=== PATIENT | male | born 2005 | race Caucasian/White ===

== ENCOUNTER 2024-10-19 16:07 | Emergency (ER) | payer OTHER, SELFPAY ==
[2024-10-19 16:10] VITALS: BP 150/90
--- NOTE | 2024-10-19 16:47 | ED.GENMED ---
History of Present Illness
<Erica Lama, BLOW [employer] WORKER - Last Filed: 10/22/24 17:18>
General
Chief Complaint: Throat Problem
Source: patient and family
Exam Limitations: none
Time Seen by Provider: 10/19/24 16:30
Nursing documentation reviewed up to this point in time: agreed with
History of Present Illness
History of Present Illness:
18 yo male started with sore throat 3 days ago, mild fatigue and today throat became more sore and swollen on right side. Saw PCP who sent pt here for possible abscess. Pt denies fever/chills, denies n/v/d. Is speaking with mild hot potato voice, is
swallowing well.
Past History
<Erica Lama, BL[employer] OFF WORKER - Last Filed: 10/22/24 17:18>
Past History
ED Past Medical History: Other (ADHD, ODD)
ED Past Surgical History: None
Social History
Tobacco: Smoker (Occasionally)
Alcohol: Occasional
Personal: Single
Living: with family
Employment: Employed
Review of Systems
<Erica Lama, BL[employer] OFF WORKER - Last Filed: 10/22/24 17:18>
Review of Systems
Allergies reviewed?: Yes
All Other Systems: ROS reviewed and negative except as documented in HPI and ROS
Constitutional: Reports fatigue; Denies fever or chills
EENT: Reports sore throat
Respiratory: Reports no symptoms
Cardiac: Reports no symptoms
ABD/GI: Reports no symptoms
Musculoskeletal: Reports no symptoms
Skin: Reports no symptoms
Neurological: Reports no symptoms
Phy Exam
<Erica Lama, BLOW OFF WORKER - Last Filed: 10/22/24 17:18>
Physical Exam
Physical Exam:
GENERAL: No acute distress. A&Ox3.
CONSTITUTIONAL: Afebrile.
EYES: clear, conjunctivae normal
ENMT: moist mucus membranes, Pharynx: Moderate swelling and erythema right peritonsillar area. Swallowing well, mild hot potato voice. No trismus, neck supple, no lymphadenopathy
RESPIRATORY: Regular respirations, nonlabored, lungs clear.
CARDIOVASCULAR: Regular rate and rhythm, no murmurs, no rubs.
GI: Soft, nontender, normal BS
MUSCULOSKELETAL: Moves with ease. Well perfused.
SKIN: Warm, dry, pink
PSYCH: Normal mood and affect. Well kept, interactive and appropriate
NEUROLOGIC: Awake, alert and oriented. No focal neurological deficits
Course
<Erica Lama, BLOW OFF WORKER - Last Filed: 10/22/24 17:18>
Orders/Labs/Results
Orders:
Orders
10/19/24 16:49
CT Neck With Iv Contrast Urgent
Reason For Exam: evaluate poss abscess
0.9% Sodium Chloride 500 ml [Nss] 500 ml IV BOLUS
10/19/24 17:06
Monotest Urgent
Rapid Strep Group A Urgent
[place] Source: Throat/Pharynx
Specimen Description:
Date Specimen was Collected: 10/19/24
Time Specimen was Collected: 16:59
Throat Culture [Throat Culture, Comprehensive] Urgent
[place] Source: Throat/Pharynx
Specimen Description:
Date Specimen was Collected: 10/19/24
Time Specimen was Collected: 16:59
10/19/24 20:06
Dexamethasone Sod Phosphate [Decadron] 10 mg IV NOW STA
10/19/24 20:21
Ketorolac [Toradol] 15 mg IV NOW STA
10/19/24 20:25
Clindamycin 600 mg/50 ml [Cleocin] 600 mg in 50 ml IV NOW
Vital Signs
Initial and Last Documented VS:
Initial Vital Signs
Temp Pulse Resp BP Pulse Ox
98.6 F 110 16 150/90 98
10/19/24 16:10 10/19/24 16:10 10/19/24 16:10 10/19/24 16:10 10/19/24 16:10
Last Documented Vital Signs
Temp Pulse Resp BP Pulse Ox
98.6 F 65 18 131/72 98
10/19/24 16:10 10/19/24 21:36 10/19/24 21:36 10/19/24 21:36 10/19/24 21:36
<Karen Chester MD - Last Filed: 10/19/24 21:45>
Orders/Labs/Results
Orders:
Orders
10/19/24 16:49
CT Neck With Iv Contrast Urgent
Reason For Exam: evaluate poss abscess
0.9% Sodium Chloride 500 ml [Nss] 500 ml IV BOLUS
10/19/24 17:06
Monotest Urgent
Rapid Strep Group A Urgent
[place] Source: Throat/Pharynx
Specimen Description:
Date Specimen was Collected: 10/19/24
Time Specimen was Collected: 16:59
Throat Culture [Throat Culture, Comprehensive] Urgent
[place] Source: Throat/Pharynx
Specimen Description:
Date Specimen was Collected: 10/19/24
Time Specimen was Collected: 16:59
10/19/24 20:06
Dexamethasone Sod Phosphate [Decadron] 10 mg IV NOW STA
10/19/24 20:21
Ketorolac [Toradol] 15 mg IV NOW STA
10/19/24 20:25
Clindamycin 600 mg/50 ml [Cleocin] 600 mg in 50 ml IV NOW
Vital Signs
Initial and Last Documented VS:
Initial Vital Signs
Temp Pulse Resp BP Pulse Ox
98.6 F 110 16 150/90 98
10/19/24 16:10 10/19/24 16:10 10/19/24 16:10 10/19/24 16:10 10/19/24 16:10
Last Documented Vital Signs
Temp Pulse Resp BP Pulse Ox
98.6 F 65 18 131/72 98
10/19/24 16:10 10/19/24 21:36 10/19/24 21:36 10/19/24 21:36 10/19/24 21:36
<Erica Lama BLOW OFF WORKER - Last Filed: 10/22/24 17:18>
MDM/Problems Addressed
Differential Diagnosis Includes:
peritonsillar abscess, retropharyngeal abscess, strep, [place]
MDM/Problems Addressed:
18 yo male started with sore throat 3 days ago, mild fatigue and today throat became more sore and swollen on right side. Saw PCP who sent pt here for possible abscess. Pt denies fever/chills, denies n/v/d. Is speaking with mild hot potato voice, is
swallowing well.
Afebrile, NAD
17:30
Covid neg
Rapid Flu neg
CT neck with IV contrast radiology report read: IMPRESSION:
1. ACUTE BILATERAL TONSILLITIS (right greater than left) involving the palatine tonsils in both sides of the oropharynx.
2. 1.8 cm RIGHT PERITONSILLAR ABSCESS (or phlegmon).
10/22/24 Called and spoke with mom, pt doing much better, starting to improve after ED visit. Eating and drinking, will f/u w his PCP
<Erica Lama BLOW OFF WORKER - Last Filed: 10/22/24 17:18>
*Critical Care Note
Total Time (30-74mins, 75-104mins- exclusive of procedures): Not Applicable
ED Attending Note
<Erica Lama BL[employer] WORKER - Last Filed: 10/22/24 17:18>
-
Portions of this chart may have been created with voice recognition software.� Occasional wrong word or��sound alike� substitutions may have occurred due to the inherent limitations of voice recognition software.
<Karen Chester MD - Last Filed: 10/19/24 21:45>
ED Attending Note
Patient seen and examined by attending physician: Yes
I performed the substantive portion of visit, reviewed & personally made and approve the management plan that is documented in note by myself or MAUREEN.: Yes
ED Attending Note:
Very pleasant 18-year-old male with a sore throat for the last 3 days. On exam, patient has a slightly muffled voice, very slight trismus, no obvious drool, managing secretions well, no dyspnea stridor or respiratory distress. On oropharynx exam
patient noted to have swelling of the right peritonsillar area, no uvular deviation noted, no exudate. Aspiration with 18-gauge needle of abscess consistent with 1 mL of purulent material. Patient tolerated procedure well. Will be discharged with
very close returnprecautions, antibiotics. ENT has been notified.
Discharge Plan
Departure
Patient Disposition: Home (Routine Discharge)
Date of Disposition: 10/19/24
Time of Disposition: 21:45
Patient with high blood pressure during this ER visit?: Yes
Condition: Good
Discharge Problem:
Peritonsillar abscess, Acute tonsillitis
Instructions: Peritonsillar Abscess, Adult (DC)
Prescriptions:
New
clindamycin HCl 300 mg capsule
300 mg PO QID Qty: 28 0RF
No Action
No Current Medications
Referrals:
Dennis Nunn MD [Family Provider] -
Be Patton MD [Active] - Call in 1-3 days for appt
Activity Restrictions/Additional Instructions:
As we discussed, rinse and spit with salt water 4 times a day
Tylenol or Ibuprofen as needed for pain. .
I sent a prescription to your pharmacy for Clindamycin to take 300 mg 4 times a day for [address] Patton over the weekend if you have any problems. He is aware of you.
Return here IMMEDIAtELY for difficulty swallowing, vomiting more than once in one hour, fever not relieved by Tyelnol or Ibuprofen, increased swelling, or feeling worse in any way
If pus builds back up, may have to have in re drained.
Stick with soft, bland foods or liquids until the area feels better.
Call Dr. Patton's office Tuesday a.m. for same or next day follow up.
Interventions
Interventions:
*Risk Screen - Suicide Last Done: 10/19/24 16:10
*General Assessment Last Done: 10/19/24 21:30
*Neglect/Abuse Screening Last Done: 10/19/24 16:10
*Nursing Disposition Last Done: 10/19/24 21:30
ED-EENT Assessment Last Done: 10/19/24 19:00
ED- Pulmonary Assessment Last Done: 10/19/24 19:00
Discharge Date and Time
Discharge Date/Time: 10/19/24 22:16
Print Language: IRISH
[2024-10-19 17:44] LABS: Monotest Negative (Negative)
[2024-10-19] MEDS: NSS 500 IV (17:59)
[2024-10-19 20:26] VITALS: BMI 24.4
[2024-10-19] MEDS: CLEOCIN 50 IV (20:38)
[2024-10-19] MEDS: TORADOL 15 MG IV (20:38)
[2024-10-19] MEDS: DECADRON 10 MG IV (20:38)
[2024-10-19 21:36] VITALS: BP 131/72
== END 2024-10-19 22:16 | disposition home or self-care (01) ==
LOC: EMR 16:07
PROVIDERS: Registered Nurse; EMERGENCY PHYSICIAN Emergency Medicine; FAMILY PHYSICIAN Family Medicine
DX: J36 Peritonsillar abscess (principal); R53.83 Other fatigue; F90.9 Attention-deficit hyperactivity disorder, unspecified type; F91.3 Oppositional defiant disorder; F17.200 Nicotine dependence, unspecified, uncomplicated; Z11.52 Encounter for screening for COVID-19
CPT/HCPCS: 99284; 96365; 96375; 70491; 86308; 87070; 87147; 87880; Q9967